=== PATIENT | female | born 1940 | race Caucasian/White ===

== ENCOUNTER 2018-08-21 16:51 | Emergency (ER) | payer OTHER ==
[~2018-08-21] VITALS: Ht 157.5 cm; Wt 63.5 kg
[~2018-08-21 16:51] MED LIST: ALTACE10 MG; CALCIO; FOLIC ACID1 MG; METHOTREXATE25 MG/ML; PRILOSEC20 MG; TENORMIN0.5 MG/ML; [UNRECOGNIZED DRUG - CODE]
[2018-08-21] MEDS ORDERED: TOPROL XL50 MG (17:29)
[2018-08-21] MEDS ORDERED: ALTACE10 MG (17:29)
[2018-08-21] MEDS ORDERED: SYNTHROID112 MCG (17:30)
[2018-08-21] MEDS ORDERED: PEPCID40 MG (17:31)
[2018-08-22] MEDS ORDERED: PEPCID40 MG PO (08:12)
[2018-08-22] MEDS ORDERED: ZOFRAN ODT4 MG PO (08:12)
== END 2018-08-22 08:16 | disposition home or self-care (01) ==
LOC: ER 16:51
DX: M06.812 Other specified rheumatoid arthritis, left shoulder (principal); E86.0 Dehydration; R10.13 Epigastric pain; M25.512 Pain in left shoulder

== ENCOUNTER 2022-06-17 17:22 | Emergency (ER) | payer OTHER ==
[~2022-06-17] VITALS: Ht 167.6 cm; Wt 68.9 kg
[~2022-06-17 17:22] MED LIST changes: +PEPCID40 MG; +PEPCID40 MG PO; +SYNTHROID112 MCG; +TOPROL XL50 MG; +ZOFRAN ODT4 MG PO
[2022-06-18] MEDS ORDERED: NEXIUM 24HR20 MG PO (01:01)
== END 2022-06-18 04:10 | disposition home or self-care (01) ==
LOC: ER 17:22
DX: R11.10 Vomiting, unspecified (principal); N39.0 Urinary tract infection, site not specified; I10 Essential (primary) hypertension; M06.9 Rheumatoid arthritis, unspecified; E03.9 Hypothyroidism, unspecified

== ENCOUNTER 2022-07-29 16:37 | Emergency (ER) | payer OTHER ==
[~2022-07-29] VITALS: Ht 177.8 cm; Wt 68.9 kg
[~2022-07-29 16:37] MED LIST changes: +NEXIUM 24HR20 MG PO
== END 2022-07-29 21:53 | disposition home or self-care (01) ==
LOC: ER 16:37
DX: M54.9 Dorsalgia, unspecified (principal); K21.9 Gastro-esophageal reflux disease without esophagitis; K57.92 Diverticulitis of intestine, part unspecified, without perforation or abscess without bleeding; E07.9 Disorder of thyroid, unspecified; Z88.8 Allergy status to other drugs, medicaments and biological substances

== ENCOUNTER 2022-08-30 14:10 | Emergency (ER) | payer OTHER ==
[~2022-08-30] VITALS: Ht 165.1 cm; Wt 66.7 kg
== END 2022-08-30 17:50 | disposition home or self-care (01) ==
LOC: ER 14:10
DX: M54.89 Other dorsalgia (principal); Z88.2 Allergy status to sulfonamides; Z88.8 Allergy status to other drugs, medicaments and biological substances

== ENCOUNTER 2024-02-11 17:41 | Emergency (ER) | payer OTHER ==
[~2024-02-11] VITALS: Ht 162.6 cm; Wt 49.9 kg
[~2024-02-11 17:41] MED LIST changes: +CIPRO HC OTIC S10 ML OT; +LEVSIN/SL0.125 MG SL; +OMEPRAZOLE40 MG PO; +ONDANSETRON ODT8 MG PO
[2024-02-11] MEDS ORDERED: NEXIUM2.5 MG (17:51)
[2024-02-11] MEDS ORDERED: KAPSPARGO SPRIN25 MG (17:51)
[2024-02-11 18:59] LABS: HEMATOCRIT 36.3 % (36.0-45.00); HEMOGLOBIN 12.1 g/dL (12.0-15.00); MEAN CELL VOLUME 96.8 fL (80.00-100.00); MEAN CORPUSCULAR HEMOGLOBIN 32.3 pg (27.00-32.0); MEAN CORPUSCULAR HGB CONC 33.3 g/dl (32.0-36.0); PLATELET COUNT 329 K/uL (150-450); RED BLOOD COUNT 3.75 M/uL (4.00-6.00); RED CELL DISTRIBUTION WIDTH 16.1 % (11.5-14.5)
[2024-02-11 19:18] LABS: PH,URINE 5.5 (5.0-8.0); URINE APPEARANCE Clear; URINE BILIRRUBIN Negative (NEGATIVE); URINE BLOOD Negative; URINE COLOR Yellow; URINE GLUCOSE Negative (NEGATIVE); URINE KETONE Negative (NEGATIVE); URINE LEUKOCYTE Negative; URINE NITRATE Negative; URINE PROTEIN Negative (NEGATIVE)
[2024-02-11 19:19] LABS: URINE BACTERIA 15.1 uL (0.0-1933); URINE RBC 6.4 uL (0.0-20.8); URINE WBC 7.2 uL (0.0-23.2)
[2024-02-11 19:22] LABS: ALBUMIN 3.1 gm/dL (3.4-5.0); BILIRUBIN TOTAL 0.35 mg/dL (0.3-1.2); CALCIUM 9.1 mg/dL (8.5-10.1); CREATININE SERUM 0.76 mg/dL (0.55-1.02); GFR 72.33; GLOBULINA 4.8 G/DL (2.4-3.5); POTASSIUM 4.15 mEq/L (3.5-5.1); TOTAL PROTEIN 7.9 gm/dL (6.4-8.2)
[2024-02-11 19:37] LABS: URINE MUCUS HEAVY
== END 2024-02-11 20:30 | disposition home or self-care (01) ==
LOC: ER 17:41
PROVIDERS: General Practice
DX: R53.81 Other malaise (principal); R53.1 Weakness; Z20.822 Contact with and (suspected) exposure to COVID-19; I10 Essential (primary) hypertension; Z88.1 Allergy status to other antibiotic agents

== ENCOUNTER 2025-05-27 11:30 | Inpatient (IN) | payer OTHER ==
[~2025-05-27] VITALS: Ht 162.6 cm; Wt 59.0 kg
[~2025-05-27 11:30] MED LIST changes: +KAPSPARGO SPRIN25 MG; +NEXIUM2.5 MG
--- NOTE | 2025-05-27 11:58 | NUR ---
PACIENTE ALERTA Y ORIENTADA EN AMBULANCIA Y EN COMPANIA DE FAMILIAR QUIEN REFIERE QUE COMENZO HOY CON DOLOR ABDMINAL, NAUCEAS Y DOLOR DE MARION. SE MONITOREAN S/V Y SE UBICA PACIENTE.
[2025-05-27] MEDS ORDERED: FAMOtidine 10 MG/ML (4ML VIAL) IV PUSH ONE (12:30)
[2025-05-27] MEDS ORDERED: MORPHINE SULFATE 2 MG/ML SYRINGE IV ONE (12:30)
[2025-05-27] MEDS ORDERED: ONDANSETRON HCL 2 MG/ML VIAL IV ONE (12:30)
[2025-05-27] MEDS ORDERED: 0.9 % SODIUM CHLORIDE 1,000 ML IV SCH (12:30)
[2025-05-27] MEDS ORDERED: FAMOTIDINE/PF 20 MG/2 ML VIAL ONE ×2 (12:36→19:52)
[2025-05-27] MEDS ORDERED: ONDANSETRON HCL 2 MG/ML VIAL ONE (12:36)
[2025-05-27 13:12] LABS: BASO % 0.2 % (0.1-1.2); EOS # 0.03 (0.04-0.54); EOS % 0.3 % (0.7-7.0); LYMPH # 1.86 (1.18-3.74); LYMPH % 18.2 % (19.3-53.1); MEAN PLATELET VOLUME 10.60 fl (9.4-12.4); MONO # 0.78 (0.24-0.82); MONO % 7.6 % (4.7-12.5); NEUT # 7.51 (1.56-6.13); NEUT % 73.4 % (34.0-71.1); RED CELL DISTRIBUTION WIDTH 15.3 % (11.6-14.4)
--- NOTE | 2025-05-27 13:12 | NUR ---
SE EDUCA PTE SOBRE TX Y ESTA REFIERE ENTENDER Y ACEPTAR. SE PROCEDE A COLECTAR MUESTRAS DE LABORATORIO Y CANALIZAR BAJO MEDIDAS ASEPTICAS Y SE ADMINISTRAN MEDICAMENTOS DINO ORDEN MEDICA.
[2025-05-27 13:52] LABS: URINE APPEARANCE Clear; URINE BILIRRUBIN Negative (NEGATIVE); URINE BLOOD Negative; URINE COLOR Yellow; URINE GLUCOSE Negative (NEGATIVE); URINE KETONE Negative (NEGATIVE); URINE LEUKOCYTE Negative; URINE NITRATE Negative; URINE PROTEIN Trace (NEGATIVE); URINE UROBILINOGEN 1.0 E.U./dl
[2025-05-27 13:55] LABS: URINE BACTERIA 155.5 uL (0.0-1933); URINE EPITHELIAL CELLS 18.6 uL (0.0-38.8); URINE RBC 12.6 uL (0.0-20.8); URINE WBC 12.4 uL (0.0-23.2)
[2025-05-27 13:57] LABS: URINE CAST 0.28 uL (0.0-1.40)
[2025-05-27 14:34] LABS: ALT/SGPT 20.0 U/L (12-78); AST/SGOT 41.0 U/L (15-37); BILIRUBIN TOTAL 0.61 mg/dL (0.3-1.2); BUN CREA RATIO 24.0 (7.0-25.0); CREATININE SERUM 0.72 mg/dL (0.55-1.02); GFR 76.8; GLOBULINA 4.6 G/DL (2.4-3.5); GLUCOSE FASTING 106.0 mg/dL (65-100); OSMOLALITY SERUM 270.0 MOSM/KG (275-295)
[2025-05-27] MEDS ORDERED: FAMOTIDINE/PF 20 MG in 0.9 % SODIUM CHLORIDE 100 ML IV SCH (18:31)
[2025-05-27] MEDS ORDERED: MORPHINE SULFATE 2 MG/ML SYRINGE IV PRN (18:45)
[2025-05-27 19:46] VITALS: BP 130/80
[2025-05-27] MEDS ORDERED: ACETAMINOPHEN 500 MG GEL..CAP PO SCH (20:00)
[2025-05-27] MEDS ORDERED: MORPHINE SULFATE 4 MG/ML VIAL IV PRN (20:15)
[2025-05-28] MEDS ORDERED: CEFEPIME HCL 2,000 MG in 0.9 % SODIUM CHLORIDE 100 ML IV SCH (01:00)
[2025-05-28 01:11] VITALS: BP 110/64; O2SAT 97
[2025-05-28 03:20] VITALS: BP 124/84; O2SAT 96
[2025-05-28] MEDS ORDERED: LEVOTHYROXINE SODIUM 88 MCG TABLET PO SCH (06:00)
[2025-05-28 06:48] VITALS: BP 131/67; O2SAT 97
[2025-05-28 07:10] LABS: BASO % 0.1 % (0.1-1.2); EOS # 0.07 (0.04-0.54); EOS % 1.0 % (0.7-7.0); LYMPH # 1.90 (1.18-3.74); LYMPH % 28.2 % (19.3-53.1); MEAN PLATELET VOLUME 10.10 fl (9.4-12.4); MONO # 0.57 (0.24-0.82); MONO % 8.5 % (4.7-12.5); NEUT # 4.18 (1.56-6.13); NEUT % 62.1 % (34.0-71.1); RED CELL DISTRIBUTION WIDTH 15.4 % (11.6-14.4)
[2025-05-28 07:41] LABS: BUN CREA RATIO 28 (7.0-25.0); CREATININE SERUM 0.43 mg/dL (0.55-1.02); GFR 139.22; GLUCOSE FASTING 78 mg/dL (65-100); OSMOLALITY SERUM 280 MOSM/KG (275-295)
[2025-05-28 07:48] LABS: INR 1.13
[2025-05-28] MEDS ORDERED: RAMIPRIL 5 MG CAPSULE PO SCH (09:00)
[2025-05-28] MEDS ORDERED: METOPROLOL SUCCINATE 50 MG TAB.SR.24H PO SCH (09:00)
[2025-05-28] MEDS ORDERED: DEXTROSE 5 % AND 0.9 % NACL 1,000 ML IV SCH (09:45)
[2025-05-28 09:56] VITALS: BP 95/59; O2SAT 99
[2025-05-28] MEDS ORDERED: MULTIVIT INFUSN,ADULT 4,VIT K 10 ML VIAL IV NR (10:00)
[2025-05-28] MEDS ORDERED: AZTREONAM 1,000 MG in DEXTROSE 5 % IN WATER 50 ML IV SCH (17:00)
[2025-05-28 17:11] VITALS: BP 130/71; O2SAT 100
[2025-05-29 03:12] VITALS: BP 122/78; O2SAT 99
[2025-05-29] MEDS ORDERED: MULTIVIT INFUSN,ADULT 4,VIT K 10 ML VIAL IV SCH (09:00)
[2025-05-29 09:46] VITALS: BP 114/74; O2SAT 96
[2025-05-29] MEDS ORDERED: PANTOPRAZOLE SODIUM 4 MG/ML REDILUIDO IV SCH (11:45)
[2025-05-29] MEDS ORDERED: PANTOPRAZOLE SODIUM 80 MG in 0.9 % SODIUM CHLORIDE 100 ML IV SCH (13:30)
[2025-05-29] MEDS ORDERED: FAMOTIDINE/PF 20 MG in 0.9 % SODIUM CHLORIDE 100 ML IV SCH (17:00)
[2025-05-29 18:20] VITALS: BP 117/66; O2SAT 99
[2025-05-30 01:56] VITALS: BP 133/85; O2SAT 99
[2025-05-30] MEDS ORDERED: AZTREONAM 1,000 MG VIAL ONE (08:15)
[2025-05-30] MEDS ORDERED: FAMOTIDINE/PF 20 MG/2 ML VIAL ONE (08:16)
[2025-05-30 08:22] VITALS: BP 169/88; O2SAT 94
[2025-05-30] MEDS ORDERED: PANTOPRAZOLE SODIUM 40 MG/VIAL VIAL ONE (11:17)
[2025-05-30 18:26] VITALS: BP 124/76
[2025-05-31 02:00] VITALS: BP 155/80; O2SAT 100
[2025-05-31] MEDS ORDERED: AZTREONAM 1,000 MG VIAL ONE (07:30)
[2025-05-31] MEDS ORDERED: FAMOTIDINE/PF 20 MG/2 ML VIAL ONE (07:31)
[2025-05-31 09:41] VITALS: BP 155/73; O2SAT 98
[2025-05-31 18:19] VITALS: BP 101/62
[2025-06-01 03:03] VITALS: BP 145/82; O2SAT 96
[2025-06-01] MEDS ORDERED: AZTREONAM 1,000 MG VIAL ONE (08:24)
[2025-06-01 09:17] VITALS: BP 160/78; O2SAT 99
[2025-06-01] MEDS ORDERED: RAMIPRIL5 MG PO (14:58)
[2025-06-01] MEDS ORDERED: PROTONIX40 MG PO (14:58)
[2025-06-01] MEDS ORDERED: TOPROL XL50 M1 PO (14:58)
[2025-06-01] MEDS ORDERED: FOLIC ACID1 MG PO (14:58)
[2025-06-01] MEDS ORDERED: LEVOTHYROXINE88 MCG PO (14:58)
[2025-06-01] MEDS ORDERED: PEPCID40 MG PO (14:58)
[2025-06-01 18:27] VITALS: BP 149/71
== END 2025-06-01 19:22 | disposition home or self-care (01) | DRG 446 ==
LOC: ER 11:30 → MEDI 18:29 → SEC-K 18:29 → MEDI 05-28 00:04
PROVIDERS: General Practice; ADMIT Internal Medicine; ATTEND Internal Medicine
PROC: BW21YZZ Computerized Tomography (CT Scan) of Abdomen and Pelvis using Other Contrast (ICD-10-PCS; principal; 2025-05-27)
PROC: CF1C1ZZ Planar Nuclear Medicine Imaging of Hepatobiliary System, All using Technetium 99m (Tc-99m) (ICD-10-PCS; 2025-05-27)
PROC: B246ZZZ Ultrasonography of Right and Left Heart (ICD-10-PCS; 2025-05-28)
DX: K80.10 Calculus of gallbladder with chronic cholecystitis without obstruction (principal); E86.0 Dehydration; I10 Essential (primary) hypertension; E03.8 Other specified hypothyroidism; K29.70 Gastritis, unspecified, without bleeding